=== PATIENT | male | born 1965 | race Caucasian/White ===

== ENCOUNTER 2024-06-15 13:35 | Day surgery (SDC) | payer OTHER ==
[~2024-06-15] VITALS: Ht 175.3 cm; Wt 67.4 kg
[~2024-06-15 13:35] MED LIST: ALBU90OI INH; FLUTICASONE PRO12 GM INH; Glycopyrrolate 0.2 MG/ML 1MLVIAL ONE; Lactated Ringer's 1,000 ML IV ONE; Lidocaine 2% 5 ML SDV ONE; Lidocaine HCl/Pf 1% 5 ML VIAL ONE; Multiple Vitam1 EAC1 PO; Ondansetron HCl 2 MG / ML 2ML Vial ONE; Viagra100 MG PO; ePHEDrine Sulfate 50 MG/ML 1ML Injection ONE; propofoL 40 ML IV ONE
[2024-06-15] MEDS ORDERED: Lactated Ringer's 1,000 ML IV ONE (15:25)
[2024-06-15 16:37] VITALS: BP 114/74
== END 2024-06-15 16:39 | disposition home or self-care (01) ==
LOC: ORSCSDS 13:35
PROVIDERS: Surgery
PROC: 0DBN8ZX Excision of Sigmoid Colon, Via Natural or Artificial Opening Endoscopic, Diagnostic (ICD-10-PCS; principal; 2024-06-15 15:15)
DX: Z12.11 Encounter for screening for malignant neoplasm of colon (principal); Z86.0101 Personal history of adenomatous and serrated colon polyps; D12.5 Benign neoplasm of sigmoid colon; K57.30 Diverticulosis of large intestine without perforation or abscess without bleeding; Z79.899 Other long term (current) drug therapy
CPT/HCPCS: 88305; J2001; J2003; J2405; J2704; J7120